=== PATIENT | male | born 1950 | race Caucasian/White ===

== ENCOUNTER 2019-01-21 11:04 | Emergency (ER) | payer MEDICARE, OTHER ==
[2019-01-21] MEDS ORDERED: Diphtheria,Pertussis(Acell),Tetanus Vaccine 0.5 ML Syringe IM ONE (11:18)
[2019-01-21] MEDS ORDERED: Lidocaine 1% 10 ML MDV INJECT ONE (11:18)
--- NOTE | 2019-01-21 11:25 | EDM.PDOC ---
ED HPI GENERAL MEDICAL PROBLEM - General Chief Complaint: Laceration Stated Complaint: LT FINGER LACERATION Time Seen by Provider: 01/21/19 11:07 Source of Information: Reports: Patient, RN Notes Reviewed History Limitations: Reports: No Limitations - History of Present Illness INITIAL COMMENTS - FREE TEXT/NARRATIVE: Patient is a 68-year-old male who presents to the ED for evaluation of 2 left finger lacerations. The patient notes that he was helping his daughter work on some shrubs outdoors when a branch fell, he went to catch the branch and ended up injuring his left index and left middle finger. He states that he ended up cutting his fingers on the gardening wendie. Both lacerations are in a V shape , and are roughly 1 cm in length on both aspects. The patient cannot remember when he last had a tetanus immunization. He can move his fingers appropriately , denies any numbness or tingling into his distal fingers. Left Finger-Index Pain Score (Numeric/FACES): 4 - Related Data Allergies Allergy/AdvReac Type Severity Reaction Status Date / Time No Known Allergies Allergy Verified 01/21/19 11:12 Home Meds: Home Meds Gabapentin [Neurontin] 300 mg PO DAILY 01/21/19 [History] Meloxicam 15 mg PO DAILY 01/21/19 [History] Omeprazole 20 mg PO DAILY 01/21/19 [History] Simvastatin 20 mg PO DAILY 01/21/19 [History] Tamsulosin [Flomax] 0.4 mg PO DAILY 01/21/19 [History] Past Medical History Genitourinary History: Reports: Prostate Disorder Other Musculoskeletal History: fusion low back Social & Family History - Tobacco Use Smoking Status *Q: Never Smoker - Caffeine Use Caffeine Use: Reports: Coffee - Recreational Drug Use Recreational Drug Use: No ED ROS GENERAL - Review of Systems Review Of Systems: See Below Constitutional: Reports: No Symptoms HEENT: Reports: No Symptoms Respiratory: Reports: No Symptoms Cardiovascular: Reports: No Symptoms Endocrine: Reports: No Symptoms GI/Abdominal: Reports: No Symptoms : Reports: No Symptoms Musculoskeletal: Reports: No Symptoms Skin: Reports: Wound (SEE HPI) Neurological: Denies: Numbness, Tingling Psychiatric: Reports: No Symptoms Hematologic/Lymphatic: Reports: No Symptoms Immunologic: Reports: No Symptoms ED EXAM, SKIN/RASH Exam: See Below Exam Limited By: No Limitations General Appearance: Alert, WD/WN, No Apparent Distress Respiratory/Chest: No Respiratory Distress, Lungs Clear, Normal Breath Sounds, No Accessory Muscle Use, Chest Non-Tender Cardiovascular: Normal Peripheral Pulses, Regular Rate, Rhythm, No Murmur Peripheral Pulses: 3+: Radial (L), Radial (R) Extremities: Normal Inspection (except for lacerations noted in skin assessment) , Normal Range of Motion, Normal Capillary Refill Neurological: Alert, Oriented, Normal Cognition, No Motor/Sensory Deficits Psychiatric: Normal Affect, Normal Mood Skin: Warm, Dry, Normal Color, No Rash, Wound/Incision (L index finger: V- shaped laceration, 1 cm x 1 cm over the anterior PIP joint. L middle finger: 1 cm laceration over the anterior PIP joint.) Location, Skin: Upper Extremity, Left ED SKIN PROCEDURES - Laceration/Wound Repair Left Anterior Digit - 2nd (Index) Lac/Wound length In cm: 2 Appearance: Subcutaneous, Irregular (V shaped), Clean Distal NVT: Neuro & Vascular Intact, No Tendon Injury Anesthetic Type: Local Local Anesthesia - Lidocaine (Xylocaine): 1% Plain Local Anesthetic Volume: 4cc Skin Prep: Chlorhexidine (Hibiciens) Saline Irrigation (cc's): 1,000 Exploration/Debridement/Repair: Wound Explored, In a Bloodless Field, Explored to Base Closed with: Sutures Suture Size: 4-0 # of Sutures: 7 Suture Type: Prolene, Interrupted, Simple Sterile Dressing Applied: Nurse Tetanus Status Addressed: Yes Complications: No Left Anterior Digit - 3rd (Middle) Lac/Wound length In cm: 1 Appearance: Linear, Clean Distal NVT: Neuro & Vascular Intact, No Tendon Injury Anesthetic Type: Digital Local Anesthesia - Lidocaine (Xylocaine): 1% Plain Local Anesthetic Volume: 3cc Skin Prep: Chlorhexidine (Hibiciens) Saline Irrigation (cc's): 1,000 Exploration/Debridement/Repair: Wound Explored, In a Bloodless Field, Explored to Base Closed with: Sutures Suture Size: 4-0 # of Sutures: 5 Suture Type: Prolene, Interrupted, Simple Sterile Dressing Applied: Nurse Tetanus Status Addressed: Yes Complications: No - Splinting Left 2nd Digit Pre-Procedure NV Status: Normal Post-Procedure NV Status: Normal Splint Material: Aluminum-Foam Applied & Form Fitted By: Nurse Provider Post-Splint Application NV Check: NV Status Normal, Good Position Left 3rd Digit Pre-Procedure NV Status: Normal Post-Procedure NV Status: Normal Splint Material: Aluminum-Foam Applied & Form Fitted By: Nurse Provider Post-Splint Application NV Check: NV Status Normal, Good Position Course - Vital Signs Last Recorded V/S: Last Vital Signs Temp 98.4 F 01/21/19 11:44 Pulse 70 01/21/19 11:44 Resp 12 01/21/19 11:44 BP 130/80 01/21/19 11:44 Pulse Ox 100 01/21/19 11:44 - Orders/Labs/Meds Orders: Active Orders 24 hr Category Date Time Status Vaccines to be Administered [RC] PER UNIT ROUTINE Care 01/21/19 11:19 Ordered Meds: Medications Discontinued Medications Generic Name Dose Route Start Last Admin Trade Name Freq PRN Reason Stop Dose Admin Diphtheria/Tetanus/Acell Pertussis 0.5 ml 01/21/19 11:18 01/21/19 11:40 Adacel IM 01/21/19 11:19 0.5 ml .ONCE ONE Administration Lidocaine HCl 10 ml 01/21/19 11:18 01/21/19 11:40 Xylocaine 1% INJECT 01/21/19 11:19 10 ml ONETIME ONE Administration Departure - Departure Time of Disposition: 12:27 Disposition: Home, Self-Care 01 Condition: Fair Clinical Impression: Laceration of index finger Qualifiers: Encounter type: initial encounter Damage to nail status: without damage Foreign body presence: without foreign body Laterality: left Qualified Code(s): S61.211A - Laceration without foreign body of left index finger without damage to nail, initial encounter Laceration of middle finger Qualifiers: Encounter type: initial encounter Damage to nail status: without damage Foreign body presence: without foreign body Laterality: left Qualified Code(s): S61.213A - Laceration without foreign body of left middle finger without damage to nail, initial encounter - Discharge Information Instructions: Stitches, Franky, or Adhesive Wound Closure, [id number] Referrals: Deny Johnson MD [Primary Care Provider] - Forms: ED Department Discharge Additional Instructions: You have been evaluated in the ED for your laceration. Sutures will need to stay in for 10-14 days You may return to the ED or clinic for removal. Please keep this area clean and dry, you may cleanse with regular soap and water. No vigorous scrubbing. Please return to ED if your symptoms change or worsen. - My Orders Last 24 Hours: My Active Orders 01/21/19 11:19 Vaccines to be Administered [RC] PER UNIT ROUTINE - Assessment/Plan Last 24 Hours: My Active Orders 01/21/19 11:19 Vaccines to be Administered [RC] PER UNIT ROUTINE
== END 2019-01-21 12:53 | disposition home or self-care (01) ==
LOC: JD.ED 11:04
DX: S61.211A Laceration without foreign body of left index finger without damage to nail, initial encounter (principal); S61.213A Laceration without foreign body of left middle finger without damage to nail, initial encounter; Z23 Encounter for immunization; Z79.899 Other long term (current) drug therapy; W19.XXXA Unspecified fall, initial encounter
CPT/HCPCS: 12002; 90471; 90700; 99282; J2001

== ENCOUNTER 2019-02-04 08:34 | Emergency (ER) | payer MEDICARE, OTHER | END 2019-02-04 08:54 | disposition home or self-care (01) | LOC: JD.ED 08:34 | DX: S61.211D Laceration without foreign body of left index finger without damage to nail, subsequent encounter (principal); S61.213D Laceration without foreign body of left middle finger without damage to nail, subsequent encounter; W19.XXXD Unspecified fall, subsequent encounter ==

== ENCOUNTER 2019-08-31 11:28 | Emergency (ER) | payer MEDICARE, OTHER ==
--- NOTE | 2019-08-31 12:04 | EDM.PDOC ---
ED HPI GENERAL MEDICAL PROBLEM - General Chief Complaint: Gastrointestinal Problem Stated Complaint: RECTAL BLEEDING POST BACK SURGERY Time Seen by Provider: 08/31/19 11:40 Source of Information: Reports: Patient History Limitations: Reports: No Limitations - History of Present Illness INITIAL COMMENTS - FREE TEXT/NARRATIVE: Patient is a 68-year-old male who presents with complaints of rectal bleeding and "feeling impacted ". He states this morning he was straining to have a bowel movement and thereafter noticed some bleeding from his rectum. He states the bleeding was significant enough to drip into the toilet, he was only able to have a small amount of stool and states that he feels it did have to stretch the rectum significantly to pass. Patient recently had a lumbar fusion at [facility] in [place]. He was discharged on Tuesday of this week. Patient states he has only taken one [place] since he was discharged; however, he states that he was receiving frequent narcotic pain medications while in the hospital. Patient states that he is taking 1 Colace daily but has not taken any additional laxatives. He states that he does have a history of hemorrhoids, but has never had any issues with them bleeding or thrombosing. He denies a history of GI bleeds, clotting disorders and is not on any blood thinners. Back Pain Score (Numeric/FACES): 6 - Related Data Allergies Allergy/AdvReac Type Severity Reaction Status Date / Time No Known Allergies Allergy Verified 01/21/19 11:12 Home Meds: Home Meds Gabapentin [Neurontin] 300 mg PO DAILY 01/21/19 [History] Meloxicam 15 mg PO DAILY 01/21/19 [History] Omeprazole 20 mg PO DAILY 01/21/19 [History] Simvastatin 20 mg PO DAILY 01/21/19 [History] Tamsulosin [Flomax] 0.4 mg PO DAILY 01/21/19 [History] Past Medical History Cardiovascular History: Reports: High Cholesterol Genitourinary History: Reports: Prostate Disorder Other Musculoskeletal History: fusion low back Social & Family History - Family History Family Medical History: Noncontributory - Tobacco Use Smoking Status *Q: Never Smoker Second Hand Smoke Exposure: No - Caffeine Use Caffeine Use: Reports: Coffee - Alcohol Use Days Per Week of Alcohol Use: 5 Number of Drinks Per Day: 2 Total Drinks Per Week: 10 - Recreational Drug Use Recreational Drug Use: No ED ROS GENERAL - Review of Systems Review Of Systems: See Below Constitutional: Reports: No Symptoms HEENT: Reports: No Symptoms Respiratory: Reports: No Symptoms Cardiovascular: Reports: No Symptoms Endocrine: Reports: No Symptoms GI/Abdominal: Reports: Constipation, Other (Rectal bleeding). Denies: Abdominal Pain, Diarrhea, Stool Incontinence : Reports: No Symptoms Musculoskeletal: Reports: No Symptoms Skin: Reports: No Symptoms Neurological: Reports: No Symptoms Psychiatric: Reports: No Symptoms Hematologic/Lymphatic: Reports: No Symptoms Immunologic: Reports: No Symptoms ED EXAM, GI/ABD - Physical Exam Exam: See Below Exam Limited By: No Limitations General Appearance: Alert, WD/WN, No Apparent Distress Respiratory/Chest: No Respiratory Distress, Lungs Clear, Normal Breath Sounds, No Accessory Muscle Use, Chest Non-Tender Cardiovascular: Normal Peripheral Pulses, Regular Rate, Rhythm, No Edema, No Murmur GI/Abdominal Exam: Normal Bowel Sounds, Soft, Non-Tender, No Distention Rectal (Males) Exam: Fecal Impaction, Other (No visible external hemmoroids or palpable internal hemorrhoids. No active bleeding noted. Pt is tender internally on the right side of his rectum during digital exam. No visible fissure.) Neurological: Alert, Oriented, Normal Cognition Psychiatric: Normal Affect, Normal Mood Skin Exam: Warm, Dry, Intact, Normal Color, No Rash Course - Vital Signs Last Recorded V/S: Last Vital Signs Temp 98.2 F 08/31/19 11:39 Pulse 91 08/31/19 11:39 Resp 16 08/31/19 11:39 BP 150/81 H 08/31/19 11:39 Pulse Ox 100 08/31/19 11:39 - Orders/Labs/Meds Orders: Active Orders 24 hr Category Date Time Status Enema [RC] ASDIRECTED Care 08/31/19 12:11 Active Enema [RC] ONETIME Care 08/31/19 13:22 Active Meds: Medications Discontinued Medications Generic Name Dose Route Start Last Admin Trade Name Margie PRN Reason Stop Dose Admin Lidocaine HCl 10 ml 08/31/19 12:10 08/31/19 12:20 Xylocaine 2% Jelly MUCMEM 08/31/19 12:11 10 ml ONETIME ONE Administration - Re-Assessments/Exams Free Text/Narrative Re-Assessment/Exam: On exam, there is no further rectal bleeding present, however there is serosanguineous fluid noted on the patient's undergarments. There are no visible or palpable hemorrhoids, however the patient is tender internally on the right side of the rectum. It is likely that his bleeding was caused by trauma from his stool impaction and that there may be a fissure internally. I have ordered an abdomen flat assess the extent of the patient's constipation. 08/31/19 12:20 Patient does have a significant amount of retained stool in the rectal vault, as well as throughout the colon. We have ordered a lidocaine Urojet and oil retention enema. 08/31/19 13:20 Patient did not have any results with the mineral oil enema. We will repeat the enema using a saline enema. 08/31/19 13:55 Patient did have a very large bowel movement. I don't feel there is a need for magnesium citrate at this time, however I did recommend that the patient take a Full of MiraLAX twice daily for the next couple days and then back off to a capful daily until he achieves a regular bowel pattern. Discharge instructions as noted Departure - Departure Time of Disposition: 13:56 Disposition: Home, Self-Care 01 Condition: Fair Clinical Impression: Constipation, Rectal bleeding - Discharge Information *PRESCRIPTION DRUG MONITORING PROGRAM REVIEWED*: No *COPY OF PRESCRIPTION DRUG MONITORING REPORT IN PATIENT RYAN: No Instructions: Constipation, Adult Referrals: Deny Johnson MD [Primary Care Provider] - Forms: ED Department Discharge Additional Instructions: You were seen in the emergency department today for rectal bleeding after trying to pass a stool impaction. It is likely that the bleeding was from a fissure due to the trauma associated with the large, firm bowel movement. X- ray did show that you did have a stool impaction in the rectum. You received 2 enemas and were able to have a large bowel movement after that. I would recommend that she take a Full of MiraLAX twice daily for the next few days. After that time he may back off to one capful daily until you achieve a regular bowel pattern. You may then use as needed. Please be aware that if you continue to use narcotic pain medications that these can be constipating so ensure that she use a stool softener or laxative with these. Additionally I would recommend that you increase your fluid and fiber intake. If you experience any new or worsening symptoms, please do not hesitate to return to the emergency department. Sepsis Event Note - Evaluation Sepsis Screening Result: No Definite Risk - Focused Exam Vital Signs: Vital Signs Temp Pulse Resp BP Pulse Ox 08/31/19 11:39 98.2 F 91 16 150/81 H 100 Date Exam was Performed: 08/31/19 Time Exam was Performed: 13:55 - My Orders Last 24 Hours: My Active Orders 08/31/19 12:11 Enema [RC] ASDIRECTED 08/31/19 13:22 Enema [RC] ONETIME - Assessment/Plan Last 24 Hours: My Active Orders 08/31/19 12:11 Enema [RC] ASDIRECTED 08/31/19 13:22 Enema [RC] ONETIME
[2019-08-31] MEDS ORDERED: Lidocaine 2% Jelly 10 ML Urojet MUCMEM ONE (12:10)
--- NOTE | 2019-08-31 13:23 | CR ---
Abdomen: Supine view of the abdomen was obtained. Comparison: No prior abdominal imaging. Right hip prosthesis is noted. Transpedicle screws are noted within the spine with skin malissa. Vascular calcification is seen. Phleboliths are noted within the pelvis. Bowel gas pattern is normal. Impression: 1. Findings as noted above. 2. Nothing acute is seen on supine abdominal x-ray. Diagnostic code #2 Study was dictated in [place] Standard Time
== END 2019-08-31 14:07 | disposition home or self-care (01) ==
LOC: JD.ED 11:28
DX: K59.00 Constipation, unspecified (principal); K62.5 Hemorrhage of anus and rectum
CPT/HCPCS: 74018; 74018-26; 99283; 99283-25

== ENCOUNTER 2019-09-11 08:53 | Emergency (ER) | payer MEDICARE, OTHER | END 2019-09-11 09:14 | LOC: JD.ED 08:53 | DX: S21.219D Laceration without foreign body of unspecified back wall of thorax without penetration into thoracic cavity, subsequent encounter (principal); X58.XXXD Exposure to other specified factors, subsequent encounter | CPT/HCPCS: 99281 ==

== ENCOUNTER 2022-11-29 17:48 | Emergency (ER) | payer MEDICARE, OTHER ==
[2022-11-29] MEDS ORDERED: Sodium Chloride 0.9% 10 ML Syringe FLUSH PRN (18:43)
[2022-11-29] MEDS ORDERED: LORazepam 2 MG/ML SDV IVPUSH ONE ×2 (18:44→20:09)
[2022-11-29] MEDS ORDERED: Sodium Chloride 0.9% 1,000 ML IV SCH (18:45)
[2022-11-29] MEDS ORDERED: Acetaminophen 325 MG Tab PO ONE (20:11)
[2022-11-29] MEDS ORDERED: Levofloxacin 750 MG Tab PO ONE (21:00)
[2022-11-29] MEDS ORDERED: ClonazePAM 1 MG Tab PO ONE (21:09)
== END 2022-11-29 21:45 | disposition home or self-care (01) ==
LOC: JD.ED 17:48
DX: R53.83 Other fatigue (principal); C91.10 Chronic lymphocytic leukemia of B-cell type not having achieved remission; F51.01 Primary insomnia; E78.00 Pure hypercholesterolemia, unspecified; Z79.899 Other long term (current) drug therapy
CPT/HCPCS: 36415; 83605; 84550; 86140; 87040; 96361; 96374; 96376; 99284; A9270; J2060; J3490; J7030

== ENCOUNTER 2022-12-14 09:03 | Inpatient (IN) | payer MEDICARE, OTHER ==
[2022-12-14] MEDS ORDERED: Sodium Chloride 0.9% 1,000 ML IV SCH (10:00)
[2022-12-14 11:29] LABS: CORONAVIRUS COVID-19 NAA NEGATIVE (NEGATIVE)
[2022-12-14] MEDS ORDERED: HYDROmorphone 0.5 MG/0.5 ML Syringe IVPUSH ONE (11:48)
[2022-12-14] MEDS ORDERED: Meropenem 1 GM in Sodium Chloride 0.9% 100 ML IV ONE (12:23)
[2022-12-14] MEDS ORDERED: oxyCODONE 5 MG Tab PO PRN (14:11)
[2022-12-14] MEDS: Sodium Chloride 0.9% 1,000 ML IV SCH (15:48)
[2022-12-14] MEDS: Prochlorperazine 5 MG Tab PO SCH ×2 (16:02→21:16)
[2022-12-14] MEDS: Meropenem 500 MG in Sodium Chloride 0.9% 100 ML IV SCH (18:07)
[2022-12-14] MEDS: atorvaSTATin 20 MG Tab PO SCH (21:15)
[2022-12-14] MEDS: Acyclovir 200 MG Cap PO SCH (21:15)
[2022-12-14] MEDS: Acetaminophen 325 MG Tab PO PRN (21:38)
[2022-12-15] MEDS: Meropenem 500 MG in Sodium Chloride 0.9% 100 ML IV SCH ×4 (01:31→18:30)
[2022-12-15] MEDS: Sodium Chloride 0.9% 1,000 ML IV SCH ×2 (01:44→15:59)
[2022-12-15] MEDS: Acyclovir 200 MG Cap PO SCH ×2 (08:01→20:00)
[2022-12-15] MEDS: Pantoprazole 40 MG Tab.CR PO SCH (08:02)
[2022-12-15] MEDS: Tamsulosin 0.4 MG Cap.ER PO SCH (08:02)
[2022-12-15] MEDS: Polyethylene Glycol 3350 Powder 17 GM Packet PO SCH (08:10)
[2022-12-15] MEDS: Prochlorperazine 5 MG Tab PO SCH ×4 (08:10→20:00)
[2022-12-15] MEDS: Sertraline 50 MG Tab PO SCH (08:10)
[2022-12-15] MEDS: Finasteride 5 MG Tab PO SCH (08:10)
[2022-12-15] MEDS ORDERED: Loperamide 2 MG Cap PO ONE (11:00)
[2022-12-15] MEDS ORDERED: Lidocaine 4% Crm 15 GM Tube TOP PRN (12:55)
[2022-12-15] MEDS ORDERED: LORazepam 2 MG/ML SDV IVPUSH ONE (16:51)
[2022-12-15] MEDS: Acetaminophen 325 MG Tab PO PRN (20:00)
[2022-12-15] MEDS: atorvaSTATin 20 MG Tab PO SCH (20:00)
[2022-12-15] MEDS ORDERED: Temazepam 15 MG Cap PO SCH (21:00)
[2022-12-16] MEDS: Meropenem 500 MG in Sodium Chloride 0.9% 100 ML IV SCH ×4 (00:07→12:02)
[2022-12-16] MEDS: Sodium Chloride 0.9% 1,000 ML IV SCH (00:08)
[2022-12-16] MEDS: Acetaminophen 325 MG Tab PO PRN (02:21)
[2022-12-16] MEDS ORDERED: Loperamide 2 MG Cap PO ONE (03:40)
[2022-12-16] MEDS: LORazepam 2 MG/ML SDV IVPUSH PRN ×2 (08:40→13:07)
[2022-12-16] MEDS: Acetaminophen 325 MG Tab PO ONE ×2 (08:43→11:01)
[2022-12-16] MEDS ORDERED: Sodium Chloride 0.9% 250 ML IV SCH (08:45)
[2022-12-16] MEDS: Tamsulosin 0.4 MG Cap.ER PO SCH (09:03)
[2022-12-16] MEDS: Prochlorperazine 5 MG Tab PO SCH ×2 (09:03→12:01)
[2022-12-16] MEDS: Pantoprazole 40 MG Tab.CR PO SCH (09:03)
[2022-12-16] MEDS: Sertraline 50 MG Tab PO SCH (09:03)
[2022-12-16] MEDS: Finasteride 5 MG Tab PO SCH (09:03)
[2022-12-16] MEDS: Acyclovir 200 MG Cap PO SCH (09:03)
[2022-12-16] MEDS: Polyethylene Glycol 3350 Powder 17 GM Packet PO SCH (09:04)
[2022-12-16] MEDS ORDERED: Furosemide 20 MG/2 ML VIAL IVPUSH ONE (11:00)
== END 2022-12-16 14:00 | disposition home or self-care (01) | DRG 809 ==
LOC: JD.ED 09:03 → JD.MS 14:11
PROVIDERS: ADMIT Internal Medicine; ATTEND Internal Medicine
DX: D61.810 Antineoplastic chemotherapy induced pancytopenia (principal); C83.19 Mantle cell lymphoma, extranodal and solid organ sites; D70.1 Agranulocytosis secondary to cancer chemotherapy; D64.81 Anemia due to antineoplastic chemotherapy; D69.59 Other secondary thrombocytopenia; T45.1X5A Adverse effect of antineoplastic and immunosuppressive drugs, initial encounter; Z66 Do not resuscitate; E78.00 Pure hypercholesterolemia, unspecified; Z20.822 Contact with and (suspected) exposure to COVID-19; F41.9 Anxiety disorder, unspecified; Z96.643 Presence of artificial hip joint, bilateral; F32.A Depression, unspecified; Z79.899 Other long term (current) drug therapy; Z98.890 Other specified postprocedural states
CPT/HCPCS: 0241U; 36415; 36430; 51701; 51702; 51798; 70450; 70450-26; 71045; 71045-26; 80053; 81003; 83605; 83735; 85007; 85025; 85027; 86140; 86850; 86900; 86901; 86922; 87040; 93010; 97110-GP; 97116-GP; 97162-GP; 97530-GP; 99223; 99233; 99239; 99285; A9270-GY; J1170; J1940; J2060; J2185; J3490; J7030; P9016; Q0164